=== PATIENT | female | born 1995 | race Caucasian/White ===

== ENCOUNTER 2018-02-07 18:54 | Emergency (ER) | payer MEDICAID, OTHER ==
[~2018-02-07] VITALS: Ht 165.1 cm; Wt 62.3 kg
[2018-02-07] MEDS ORDERED: LIDOCAINE-MPF 1%, 5ML ONE (20:22)
[2018-02-07] MEDS ORDERED: ONDANSETRON ODT 8 MG ONE (20:22)
[2018-02-07] MEDS ORDERED: LIDOCAINE-MPF 1%, 5ML INFIL ONE (20:30)
[2018-02-07] MEDS ORDERED: ONDANSETRON ODT 4 MG PO ONE (20:30)
[2018-02-07 20:31] VITALS: BP 122/83
== END 2018-02-07 21:31 | disposition home or self-care (01) ==
LOC: ED 21:20
DX: S02.2XXB Fracture of nasal bones, initial encounter for open fracture (principal); S06.891A Other specified intracranial injury with loss of consciousness of 30 minutes or less, initial encounter; J45.909 Unspecified asthma, uncomplicated; Y00.XXXA Assault by blunt object, initial encounter; Y93.89 Activity, other specified; Y92.098 Other place in other non-institutional residence as the place of occurrence of the external cause; Y99.8 Other external cause status
CPT/HCPCS: 12011; 70450; 70486; 99284; Q0162

== ENCOUNTER 2020-11-14 15:40 | Emergency (ER) | payer MEDICAID, OTHER ==
[~2020-11-14] VITALS: Ht 165.1 cm; Wt 55.0 kg
[2020-11-14] MEDS ORDERED: MAGNESIUM SULFATE 1 GM, THIAMINE 100 MG, FOLIC ACID 1 MG in SODIUM CHLORIDE 0.9% 1,000 ML IV ONE (16:00)
[2020-11-14] MEDS ORDERED: SODIUM CHLORIDE FLUSH 10ML SYR IVF ONE (16:00)
[2020-11-14] MEDS ORDERED: SODIUM CHLORIDE 0.9% 1,000ML IVBOLUS ONE (16:00)
[2020-11-14] MEDS ORDERED: LORazepam 2 MG/ML, 1ML ONE ×2 (16:01→17:05)
[2020-11-14] MEDS: LORazepam 2 MG/ML, 1ML IVPush PRN ×2 (16:05→17:12)
[2020-11-14 16:31] LABS: BASOPHILS % (AUTO) 0 % (0-1); EOSINOPHILS % (AUTO) 0 % (1-7); LYMPHOCYTES % (AUTO) 16 % (22-44); MEAN CORPUSCULAR HEMOGLOBIN 30.2 pg (27.0-34.8); MEAN CORPUSCULAR HGB CONC 34.4 g/dL (32.4-35.8); MEAN PLATELET VOLUME 7.2 fL (7.4-10.4); MONOCYTES % (AUTO) 3 % (2-9); NEUTROPHILS % (AUTO) 81 % (42-75); PLATELET COUNT 183 x10^3/uL (130-400); RED BLOOD COUNT 4.98 x10^6/uL (3.82-5.3); RED CELL DISTRIBUTION WIDTH 12.6 % (9.6-15.2)
[2020-11-14 16:38] LABS: ALBUMIN 3.7 g/dL (3.4-5.0); ANION GAP 16 mmol/L (5-15); CALCIUM 8.1 mg/dL (8.5-10.1); CHLORIDE 101 mmol/L (98-107)
[2020-11-14 16:44] LABS: ALANINE AMINOTRANSFERASE 84 U/L (12-78); ALKALINE PHOSPHATASE 189 U/L (45-117); BILIRUBIN,TOTAL 0.4 mg/dL (0.2-1.0); CREATININE 0.65 mg/dL (0.55-1.02); TOTAL PROTEIN 7.5 g/dL (6.4-8.2)
[2020-11-14 16:59] LABS: MD SCAN
[2020-11-14 17:38] LABS: PH, VENOUS 7.365 pH (7.320-7.420)
[2020-11-14 18:18] LABS: ACETONE, SERUM Small (20mg/dL) (Negative)
[2020-11-14 19:28] VITALS: BP 112/73
== END 2020-11-14 19:36 | disposition home or self-care (01) ==
LOC: ED 19:25
DX: F10.139 Alcohol abuse with withdrawal, unspecified (principal); R11.2 Nausea with vomiting, unspecified; R56.9 Unspecified convulsions; Y90.0 Blood alcohol level of less than 20 mg/100 ml
CPT/HCPCS: 36415; 80053; 82010; 82803; 83690; 84703; 85025; 96361; 96365; 96366; 96375; 96376; 99285; J2060; J3411; J3475; J7030